=== PATIENT | male | born 1955 | race Caucasian/White ===

== ENCOUNTER → 2016-05-12 | Outpatient (CLI) | payer OTHER ==
[~2016-05-12] MED LIST: CILO100T PO; LISI-515 PO; METO25TA3 PO; NIFE60TA58 PO
--- NOTE | 2016-05-12 11:45 | RADRPT ---
EXAM DATE/TIME: 05/12/2016 00:00 [facility] COMPARISON: No previous studies available for comparison. INDICATIONS : Claudication TECHNIQUE: Five-station segmental examination of the lower extremities was performed. Pulsed-cuff waveform tracings and pressures were recorded. Ankle-brachial indices and toe-brachial indices were calculated. PRESSURES (mmHg): Brachial (arm): Right 179 Left 174 Lower Thigh: Right 118 Left 126 Calf: Right 110 Left 99 Ankle: Right 108 Left 99 Toe: Right 105 Left 63 EDU: Right 0.60 Left 0.55 TBI: Right 0.59 Left 0.35 PULSED CUFF WAVEFORMS: Diminished waveforms bilaterally. CONCLUSION: 1. Significantly diminished ABIs and TBIs bilaterally. CT angiography with runoff would be warranted for further assessment. Rufus Brown MD on May 12, 2016 at 11:43 Board Certified Radiologist. This report was verified electronically.
== END ==
LOC: HCAV 10:34
PROVIDERS: ATTEND Family Medicine
DX: I73.9 Peripheral vascular disease, unspecified (principal); I10 Essential (primary) hypertension; Z72.0 Tobacco use
CPT/HCPCS: 93923

== ENCOUNTER 2016-06-23 11:16 | Emergency (ER) | payer OTHER ==
[~2016-06-23] VITALS: Ht 152.4 cm; Wt 66.0 kg
[~2016-06-23 11:16] MED LIST changes: -CILO100T PO
[2016-06-23 11:30] VITALS: BP 148/84; PULSE 70; RESP 15; TEMP 98; O2SAT 98
--- NOTE | 2016-06-23 12:58 | RADHPO ---
EXAM DATE/TIME: 06/23/2016 11:54 [facility] COMPARISON: No previous studies available for comparison. INDICATIONS : Right ankle pain after fall. MEDICAL HISTORY : None. SURGICAL HISTORY : None. ENCOUNTER: Initial ACUITY: 3 days PAIN SCORE: 5/10 LOCATION: Right ankle FINDINGS: Soft tissue swelling is present laterally. The ankle mortise is intact. Joint spaces are maintained. CONCLUSION: 1. There is no evidence of acute fracture. Andre Gordon MD on June 23, 2016 at 12:56 Board Certified Radiologist. This report was verified electronically.
--- NOTE | 2016-06-23 13:22 | RADHPO ---
EXAM DATE/TIME: 06/23/2016 11:54 [facility] COMPARISON: No previous studies available for comparison. INDICATIONS : Right elbow pain after fall. MEDICAL HISTORY : None. SURGICAL HISTORY : None. ENCOUNTER: Initial ACUITY: 2 days PAIN SCORE: 4/10 LOCATION: Right elbow FINDINGS: A joint effusion is present. There is no evidence of acute fracture. Bony mineralization is normal. T here is well corticated ossicle at the level of the radial collateral ligament characteristic of prev ious trauma CONCLUSION: 1. Joint effusion. Followup examination is recommended if clinically indicated. Andre Gordon MD on June 23, 2016 at 12:57 Board Certified Radiologist. This report was verified electronically.
--- NOTE | 2016-06-23 13:57 | PD ---
HPI Chief Complaint: Fall Time Seen by Provider: 13:53 Travel History International Travel<30 days: No Contact w/Intl Traveler<30days: No Traveled to known affect area: No History of Present Illness HPI Patient is a 60-year-old male presenting to emergency for evaluation of right ankle and right elbow pain. Patient sustained a mechanical fall when he tripped and fell off the second step, landing on his right elbow and twisting his right ankle. This occurred 2 days ago. Patient has been ambulatory since that time. He denies any pain but reports he wanted to get it checked out to make sure he didn't break anything. Patient denies any head injury or trauma or loss of consciousness. He has no back pain, leg pain, abdominal pain, chest pain. PFSH Past Medical History Cardiovascular Problems: Yes Diminished Hearing: No Genitourinary: No Hypertension: Yes Musculoskeletal: No Neurologic: No Reproductive: No Respiratory: Yes Past Surgical History Surgical History: No Previous Surgery Social History Alcohol Use: Yes (DAILY) Tobacco Use: Yes (1 PPD) Substance Use: No Allergies-Medications (Allergen,Severity, Reaction): Coded Allergies: No Known Allergies (Unverified , 06/23/16) Reported Meds & Prescriptions Reported Meds & Active Scripts Active Lisinopril 20 Mg Tab 20 Mg PO BID Nifedipine ER 24 HR (Nifedipine) 60 Mg Tab 60 Mg PO DAILY Metoprolol Tartrate 25 Mg Tab 25 Mg PO BID Review of Systems Except as stated in HPI: all other systems reviewed are Neg Musculoskeletal: Positive: Edema Skin: Positive Other (scabs to right elbow posteriorly) Physical Exam Narrative GENERAL: Well-nourished, well-developed patient. SKIN: Focused skin assessment warm/dry. Healing scabs to posterior right elbow , mild edema noted to right elbow. Erythema noted. HEAD: Normocephalic. EYES: No scleral icterus. No injection or drainage. NECK: Supple, trachea midline. No JVD or lymphadenopathy. CARDIOVASCULAR: Regular rate and rhythm without murmurs, gallops, or rubs. RESPIRATORY: Breath sounds equal bilaterally. No accessory muscle use. GASTROINTESTINAL: Abdomen soft, non-tender, nondistended. MUSCULOSKELETAL: No cyanosis, or edema. Full range of motion all 4 extremities. Nontender to palpation. Positive radial pulse, brisk less than 3 second capillary refill. BACK: Nontender without obvious deformity. No CVA tenderness. Data Data Last Documented VS Vital Signs Date Time Temp Pulse Resp B/P Pulse Ox O2 Delivery O2 Flow Rate FiO2 06/23/16 11:30 98.0 70 15 148/84 98 Orders Ankle, Complete ([id number]) (06/23/16 ) Elbow, Complete (4 Vws) (06/23/16 ) MDM Medical Decision Making Medical Screen Exam Complete: Yes Emergency Medical Condition: Yes Interpretation(s) Last Impressions Elbow X-Ray 06/23/16 0000 Signed Impressions: Service Date/Time: Thursday, June 23, 2016 11:54 - CONCLUSION: 1. Joint effusion. Followup examination is recommended if clinically indicated. Andre Gordon MD Ankle X-Ray 06/23/16 0000 Signed Impressions: Service Date/Time: Thursday, June 23, 2016 11:54 - CONCLUSION: 1. There is no evidence of acute fracture. Andre Gordon MD Vital Signs Date Time Temp Pulse Resp B/P Pulse Ox O2 Delivery O2 Flow Rate FiO2 06/23/16 11:30 98.0 70 15 148/84 98 Differential Diagnosis Fracture versus sprain versus strain versus contusion versus other Narrative Course Patient is a 60-year-old male presented to emergency department for evaluation of right elbow and right ankle pain after sustaining a mechanical fall 2 days ago. Patient states he has 2 steps into his trailer, he was attempting to descend the steps when he tripped and fell approximately a foot. Patient has been ambulatory, he denies any pain. He denies any head injury or loss of consciousness. Patient is neurologically and neurovascularly intact. There is mild edema noted to the posterior right elbow. Imaging of the right elbow and right ankle are negative for acute fracture. Patient was advised on findings. Is encouraged to take [id number] acetaminophen or ibuprofen as needed and as directed for pain. He was encouraged to return to emergency department for any new or worsening symptoms. He was further encouraged follow-up with his primary care provider. Patient verbalizes understanding of these instructions. Patient is stable for discharge. Diagnosis Primary Impression: Fall Qualified Code: W19.XXXA - Fall, initial encounter Additional Impression: Elbow joint effusion Qualified Code: M25.421 - Elbow joint effusion, right Referrals: Primary Care Physician 1 week Patient Instructions: Elbow Bursitis (ED), General Instructions Additional Instructions: Follow-up with your primary doctor Apply warm moist heat to the affected area, continue range of motion exercises Take [id number] acetaminophen or ibuprofen as needed and as directed for pain. Return to emergency department for any new or worsening symptoms Med/Other Pt SpecificInfo: No Change to Meds Disposition: 01 DISCHARGE HOME Condition: Stable Addie Rosales Jun 23, 2016 13:57
[2016-06-29] MEDS ORDERED: NIFE60TA58 PO (12:25)
[2016-07-07] MEDS ORDERED: CILO100T PO (12:05)
[2016-08-11] MEDS ORDERED: LISI-515 PO (11:53)
== END 2016-06-23 14:04 | disposition home or self-care (01) ==
LOC: PHED 11:16 → PHEFT 14:04
DX: M25.421 Effusion, right elbow (principal); M25.571 Pain in right ankle and joints of right foot; I10 Essential (primary) hypertension; F17.200 Nicotine dependence, unspecified, uncomplicated; W10.9XXA Fall (on) (from) unspecified stairs and steps, initial encounter
CPT/HCPCS: 73080; 73610; 99283

== ENCOUNTER → 2016-06-25 | Outpatient (CLI) | payer OTHER ==
[~2016-06-25] MED LIST changes: +CILO100T PO
[2016-06-25 15:01] LABS: BICARBONATE 28.7 MEQ/L (21.0-32.0)
== END ==
LOC: CLAB 14:26
PROVIDERS: ATTEND Nurse Practitioner Family
DX: I73.9 Peripheral vascular disease, unspecified (principal)
CPT/HCPCS: 36415; 80069

== ENCOUNTER → 2016-07-05 | Outpatient (CLI) | payer OTHER ==
[~2016-07-05] MED LIST changes: +IOHEXOL 350 MG/ML 10 ML VIAL (for RAD DIAG) IV ONE
--- NOTE | 2016-07-05 15:50 | RADRPT ---
EXAM DATE/TIME: 07/05/2016 13:38 [facility] COMPARISON: No previous studies available for comparison. INDICATIONS : Evaluate coronary artery disease. IV CONTRAST: 100 cc Omnipaque 350 (iohexol) IV RADIATION DOSE: 1.96 CTDIvol (mGy) MEDICAL HISTORY : Peripheral vascular disease. SURGICAL HISTORY : None. ENCOUNTER: Initial ACUITY: 1 day PAIN SCALE: 0/10 LOCATION: Bilateral lower extremities. TECHNIQUE: Volumetric scanning was performed using a multi-row detector CT scanner. The data was post processed with a variety of visualization algorithms including full volume maximum intensity projection, multi -planar sliding thin slab reformation, curved planar reformation, and surface rendering techniques. Using automated exposure control and adjustment of the mA and/or kV according to patient size, radiat ion dose was kept as low as reasonably achievable to obtain optimal diagnostic quality images. FINDINGS: The abdominal aorta is notable for prominence atheromatous irregularity and intimal calcification. Th ere are large endophytic calcific plaques at the level of the visceral vessels. The celiac and SMA ar e satisfactory in appearance. Mild ostial right renal artery stenosis is present. The left renal ophelia ry is occluded. The left kidney is severely atrophic. The BENJA is patent. In the pelvis, there is moderate diffuse iliac disease present on the right. Less severe disease pres ent on the left. The hypogastrics are patent bilaterally. The common femorals are relatively healthy in appearance. The profundas are patent bilaterally. In the right leg, there is mild eccentric disease present in the proximal right SFA. Runoff is therea fter satisfactory. Three-vessel right calf runoff is noted. In the contralateral left leg, mild eccentric disease is present in the distal SFA in the adductor hi atus. There is slight aneurysmal dilatation of the left popliteal artery to a diameter of 15 mm just above the knee joint level. Satisfactory 3 vessel left calf runoff is present. CONCLUSION: Significant atheromatous disease involving the abdominal aorta. 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 The other visceral vessels are intact. Moderate diffuse iliac disease, right worse than left. Relatively mild SFA disease bilaterally, proximal on the right and distal on the left. Mild left popl iteal aneurysm. Dm Gutierrez MD on July 05, 2016 at 15:38 Board Certified Radiologist. This report was verified electronically.
== END ==
LOC: HRAD 12:59
PROVIDERS: ATTEND Family Medicine
DX: I73.9 Peripheral vascular disease, unspecified (principal)
CPT/HCPCS: 75635; Q9967